=== PATIENT | male | born 1985 | race Caucasian/White ===

== ENCOUNTER 2016-10-17 15:13 | Emergency (ER) | payer OTHER ==
[~2016-10-17] VITALS: Ht 193 cm; Wt 90.7 kg
--- NOTE | ~2016-10-17 | EKG ---
[place] [address] [facility] [place] [address] ELECTROCARDIOGRAM REPORT Name: SALO JOSHI Room #: DEP Linh#: [id number] Admission: 10/17/16 Attend Phys: Discharge: 10/17/16 Date of : 87 Report #: [id number] THIS REPORT FOR: //name// [facility] ED Test Date: 2016-10-17 Test Time: 17:01:33 Pat Name: SALO JOSHI Department: Room: Gender: M [employer] Lab[employer]: HEDY : 1985 Requested By: Radha Marquez Order Number: [id number] MD: See Godinez Measurements Intervals [place] Rate: 83 P: 15 ND: 145 QRS: 20 QRSD: 96 T: 3 QT: 369 QTc: 434 Interpretive Statements Sinus rhythm Borderline T abnormalities, inferior leads No previous ECG available for comparison Electronically Signed On 10-18-2016 7:57:04 CDT by See Godinez [email or web address] <ELECTRONICALLY SIGNED> By: See Godinez MD, [facility] 10/18/16 0757 1701 1701 See Godinez MD, FACC /EPI
--- NOTE | ~2016-10-17 | EKG ---
[place] [address] [facility] [place] [address] ELECTROCARDIOGRAM REPORT Name: SALO JOSHI Room #: DEP Linh#: [id number] Admission: 10/17/16 Attend Phys: Discharge: 10/17/16 Date of : [birth year] Report #: [id number] THIS REPORT FOR: //name// [facility] ED Test Date: 2016-10-17 Test Time: 15:13:58 Pat Name: SALO JOSHI Department: Room: Gender: Country Manager: KEHINDE : 1985 Requested By: Radha Marquez Order Number: [id number] MD: See Godinez Measurements Intervals [place] Rate: 108 P: 33 FL: 144 QRS: 14 QRSD: 92 T: -5 QT: 337 QTc: 452 Interpretive Statements Sinus tachycardia Atrial premature complex Borderline T wave abnormalities Baseline wander in lead(s) I,II,aVR,aVL No previous ECG available for comparison Electronically Signed On 10-18-2016 7:55:49 CDT by See Godinez [email or web address] <ELECTRONICALLY SIGNED> By: See Godinez MD, [facility] 10/18/16 0755 12 12 See Godinez MD, [facility] /EPI
[~2016-10-17 15:13] MED LIST: FLEXERIL PO; LISINOPRIL20 MG PO
[2016-10-17] MEDS ORDERED: ULTRAM 50MG TAB50 MG PO (15:19)
[2016-10-17] MEDS ORDERED: TOPROL XL50 MG (15:19)
[2016-10-17 15:24] LABS: ABSOLUTE NEUTROPHILS 8.1 thou/uL (1.4-8.2); BASOPHILS 0.6 % (0.0-2.0); EOSINOPHILS 2.8 % (0.0-3.0); HEMATOCRIT 49.1 % (42.0-52.0); HEMOGLOBIN 17.2 gm/dL (14.0-18.0); LYMPHOCYTES 14.7 % (24.0-44.0); MCH 29.3 pg (26.0-34.0); MCV 83.6 fL (80.0-100.0); MONOCYTES 5.3 % (1.0-8.0); PLATELET COUNT 271 thou/uL (150-400); POLYS 76.6 % (36.0-66.0); RBC 5.87 mil/uL (4.50-6.00); RDW 13.9 % (10.5-14.5); WBC 10.6 thou/uL (4.0-11.0)
[2016-10-17 15:32] LABS: ANION GAP 10 mmol/L (7-16); BUN 11 mg/dL (7-18); CALCIUM 9.5 mg/dL (8.5-10.1); CHLORIDE 103 mmol/L (98-107); CO2 23 mmol/L (21-32); CREATININE 1.1 mg/dL (0.7-1.3); GLUCOSE 135 mg/dL (74-106); POTASSIUM 4.3 mmol/L (3.5-5.1); SODIUM 136 mmol/L (136-145)
[2016-10-17 15:36] LABS: MANUAL DIFF NO
[2016-10-17 15:37] LABS: APTT 28.6 Seconds (24.5-32.8); INR 1.1
[2016-10-17 15:43] LABS: ALBUMIN 4.2 g/dL (3.4-5.0); ALKALINE PHOSPHATASE 82 U/L (46-116); NT-PRO BRAIN NAT PEPTIDE 33 pg/mL (<300); SGOT 27 U/L (15-37); SGPT 68 U/L (30-65); TOTAL BILIRUBIN 0.5 mg/dL (<0.1-1.0); TOTAL PROTEIN 7.6 g/dL (6.4-8.2); TROPONIN-I < 0.04 ng/mL (<0.04-0.07)
[2016-10-17 16:38] LABS: AMP/METHAMP Negative (Negative); BARBITURATES Negative (Negative); BENZODIAZEPINES Negative (Negative); COCAINE Negative (Negative); METHADONE Negative (Negative); OPIATES POSITIVE (Negative); PCP Negative (Negative); THC Negative (Negative)
[2016-10-17 19:09] VITALS: BP 141/81
== END 2016-10-17 19:12 | disposition home or self-care (01) ==
LOC: ER 15:13
PROVIDERS: Emergency Medicine
DX: R07.9 Chest pain, unspecified (principal); I10 Essential (primary) hypertension; G43.909 Migraine, unspecified, not intractable, without status migrainosus; F17.210 Nicotine dependence, cigarettes, uncomplicated; Z88.6 Allergy status to analgesic agent; Z88.1 Allergy status to other antibiotic agents; Z88.8 Allergy status to other drugs, medicaments and biological substances